=== PATIENT | female | born 1995 | race African-American/Black ===

== ENCOUNTER 2019-03-13 22:12 | Emergency (ER) | payer MEDICAID ==
[~2019-03-13] VITALS: Ht 167.6 cm; Wt 83.0 kg
[2019-03-14] MEDS ORDERED: HYDROCODONE/ACETAMINOPHEN 5/325MG TABLET PO ONE
[2019-03-14] MEDS ORDERED: KETOROLAC 60MG/2ML VIAL IM ONE
[2019-03-14 02:09] VITALS: BP 122/64
== END 2019-03-14 02:10 | disposition home or self-care (01) ==
LOC: ER 22:12
DX: M25.512 Pain in left shoulder (principal); M54.5 Low back pain; V43.52XA Car driver injured in collision with other type car in traffic accident, initial encounter; Y93.89 Activity, other specified; Y92.488 Other paved roadways as the place of occurrence of the external cause
CPT/HCPCS: 81025; 96372; 99283; J1885